=== PATIENT | female | born 1940 | race Caucasian/White ===

== ENCOUNTER → 2024-03-15 15:09 | Outpatient (REF) | payer MEDICARE, OTHER, SELFPAY | LOC: PAVMRI 15:09 | PROVIDERS: ATTENDING PHYSICIAN Family Medicine | DX: H90.A21 Sensorineural hearing loss, unilateral, right ear, with restricted hearing on the contralateral side (principal); R41.89 Other symptoms and signs involving cognitive functions and awareness; E78.2 Mixed hyperlipidemia | CPT/HCPCS: 70553; A9575 ==